=== PATIENT | female | born 1955 | race Caucasian/White ===

== ENCOUNTER → 2017-07-02 | Outpatient (CLI) | payer BC ==
--- NOTE | 2017-07-03 11:11 | MM ---
Reason for exam: screening (asymptomatic). Last mammogram was performed 1 year ago. History: Patient is postmenopausal and has history of other cancer at age 54. Family history of breast cancer in paternal aunt. Took hormonal contraceptives for 2 years beginning at age 30. Physical Findings: A clinical breast exam by your physician is recommended on an annual basis and results should be correlated with mammographic findings. MG 3D Screening Mammo W/Cad Bilateral CC and MLO view(s) were taken. Prior study comparison: July 01, 2016, bilateral MG 3d screening mammo w/cad. July 25, 2015, bilateral MG 3d work up w/cad JOSE. The breast tissue is heterogeneously dense. This may lower the sensitivity of mammography. No suspicious abnormality. No significant changes when compared with prior studies. ASSESSMENT: Negative, BI-RAD 1 RECOMMENDATION: Routine screening mammogram of both breasts in 1 year.
== END | disposition home or self-care (01) ==
LOC: RADMAMWWP 06:54
PROVIDERS: ATTEND Family Medicine
DX: Z12.31 Encounter for screening mammogram for malignant neoplasm of breast (principal)
CPT/HCPCS: 77063; G0202

== ENCOUNTER → 2018-05-05 | Outpatient (CLI) | payer BC ==
--- NOTE | 2018-05-06 15:19 | MM ---
Reason for exam: screening (asymptomatic). Last mammogram was performed 10 months ago. History: Patient is postmenopausal and has history of other cancer at age 54. Family history of breast cancer in paternal aunt. Took hormonal contraceptives for 2 years beginning at age 30. Physical Findings: A clinical breast exam by your physician is recommended on an annual basis and results should be correlated with mammographic findings. MG 3D Screening Mammo W/Cad Bilateral CC and MLO view(s) were taken. Prior study comparison: July 02, 2017, bilateral MG 3d screening mammo w/cad. July 01, 2016, bilateral MG 3d screening mammo w/cad. The breast tissue is heterogeneously dense. This may lower the sensitivity of mammography. There is chronic nodularity bilaterally. There is no dominant lesion. No significant changes when compared with prior studies. ASSESSMENT: Benign, BI-RAD 2 RECOMMENDATION: Routine screening mammogram of both breasts in 1 year.
== END | disposition home or self-care (01) ==
LOC: RADMAMWWP 16:27
PROVIDERS: ATTEND Family Medicine
DX: Z12.31 Encounter for screening mammogram for malignant neoplasm of breast (principal)
CPT/HCPCS: 77063; 77067

== ENCOUNTER → 2018-12-01 | Outpatient (CLI) | payer BC ==
--- NOTE | 2018-12-01 16:19 | US ---
EXAMINATION TYPE: US extremity nonvasc mass JOSE DATE OF EXAM: 12/01/2018 COMPARISON: NONE CLINICAL HISTORY: R22.42 Localized swelling, mass and lump, , R22.41. Pt states feeling multiple, pal pable lumps throughout bilateral anterior thighs x 2 years Bilateral thighs scanned where pt feels multiple palpables. Subtle, echogenic, probable innumerable lipomas where pt feels palpables. Largest measured on each thigh and these appear < 1cm IMPRESSION: 1. Multiple subcutaneous slightly echogenic foci at the palpable regions. Small lipoma is likely with in the differential.
== END | disposition home or self-care (01) ==
LOC: RADUSWWP 10:05
PROVIDERS: ATTEND Family Medicine
DX: R22.43 Localized swelling, mass and lump, lower limb, bilateral (principal)
CPT/HCPCS: 76882

== ENCOUNTER → 2019-05-10 | Outpatient (CLI) | payer BC ==
--- NOTE | 2019-05-12 09:55 | MM ---
Reason for exam: screening (asymptomatic). Last mammogram was performed 1 year ago. History: Patient is postmenopausal and has history of other cancer at age 54. Family history of breast cancer in paternal aunt. Took hormonal contraceptives for 2 years beginning at age 30. Physical Findings: A clinical breast exam by your physician is recommended on an annual basis and results should be correlated with mammographic findings. MG 3D Screening Mammo W/Cad Bilateral CC and MLO view(s) were taken. Prior study comparison: May 05, 2018, bilateral MG 3d screening mammo w/cad. July 02, 2017, bilateral MG 3d screening mammo w/cad. The breast tissue is heterogeneously dense. This may lower the sensitivity of mammography. No significant changes when compared with prior studies. ASSESSMENT: Benign, BI-RAD 2 RECOMMENDATION: Routine screening mammogram of both breasts in 1 year.
== END | disposition home or self-care (01) ==
LOC: RADMAMWWP 15:39
PROVIDERS: ATTEND Family Medicine
DX: Z12.31 Encounter for screening mammogram for malignant neoplasm of breast (principal)
CPT/HCPCS: 77063; 77067

== ENCOUNTER → 2020-05-15 | Outpatient (CLI) | payer BC ==
--- NOTE | 2020-05-15 10:56 | MM ---
Reason for exam: screening (asymptomatic). Last mammogram was performed 1 year ago. History: Patient is postmenopausal and has history of other cancer at age 54. Family history of breast cancer in paternal aunt. Took hormonal contraceptives for 2 years beginning at age 30. Physical Findings: A clinical breast exam by your physician is recommended on an annual basis and results should be correlated with mammographic findings. MG 3D Screening Mammo W/Cad Bilateral CC and MLO view(s) were taken. Prior study comparison: May 10, 2019, bilateral MG 3d screening mammo w/cad. May 05, 2018, bilateral MG 3d screening mammo w/cad. The breast tissue is heterogeneously dense. This may lower the sensitivity of mammography. Benign appearing bilateral calcifications. There is chronic nodularity bilaterally. No significant changes when compared with prior studies. ASSESSMENT: Benign, BI-RAD 2 RECOMMENDATION: Routine screening mammogram of both breasts in 1 year.
== END | disposition home or self-care (01) ==
LOC: RADMAMWWP 07:50
PROVIDERS: ATTEND Family Medicine
DX: Z12.31 Encounter for screening mammogram for malignant neoplasm of breast (principal)
CPT/HCPCS: 77063; 77067

== ENCOUNTER → 2021-04-30 | Outpatient (CLI) | payer MEDICARE, OTHER ==
--- NOTE | 2021-05-01 10:06 | MM ---
Reason for exam: screening (asymptomatic). Last mammogram was performed 11 months ago. History: Patient is postmenopausal and has history of other cancer at age 54. Family history of breast cancer in paternal aunt. Took hormonal contraceptives for 2 years beginning at age 30. Physical Findings: A clinical breast exam by your physician is recommended on an annual basis and results should be correlated with mammographic findings. MG 3D Screening Mammo W/Cad Bilateral CC and MLO view(s) were taken. Prior study comparison: May 15, 2020, bilateral MG 3d screening mammo w/cad. May 10, 2019, bilateral MG 3d screening mammo w/cad. The breast tissue is heterogeneously dense. This may lower the sensitivity of mammography. Finding #1: There is a 14 mm circumscribed oval mass in the middle position of the right breast. New finding and increase in size since May 15, 2020. Finding #2: There are typically benign round calcifications in both breasts. ASSESSMENT: Incomplete: need additional imaging evaluation, BI-RAD 0 RECOMMENDATION: Ultrasound of the right breast. [facility] will attempt to contact patient to return for ultrasound. CHARANJIT
== END | disposition home or self-care (01) ==
LOC: RADMAMWWP 07:34
PROVIDERS: ATTEND Family Medicine
DX: Z12.31 Encounter for screening mammogram for malignant neoplasm of breast (principal)
CPT/HCPCS: 77063; 77067

== ENCOUNTER → 2021-05-03 | Outpatient (CLI) | payer MEDICARE, OTHER ==
--- NOTE | 2021-05-06 08:46 | USB ---
Reason for exam: additional evaluation requested from abnormal screening. History: Patient is postmenopausal and has history of other cancer at age 54. Family history of breast cancer in paternal aunt. Took hormonal contraceptives for 2 years beginning at age 30. Physical Findings: Nurse did not find any significant physical abnormalities on exam. US Breast Workup Limited RT Right limited breast ultrasound including focal area of concern, retroareolar and axilla demonstrates a 1.1 x 0.6 x 0.7cm cystic lesion at 1 o'clock and no finding at 9 o'clock BB. These results were verbally communicated with the patient and result sheet given to the patient on 05/03/21. ASSESSMENT: Probably benign, BI-RAD 3 RECOMMENDATION: Ultrasound of the right breast in 6 months.
== END | disposition home or self-care (01) ==
LOC: RADUSWWP 14:56
PROVIDERS: ATTEND Family Medicine
DX: R92.8 Other abnormal and inconclusive findings on diagnostic imaging of breast (principal)

== ENCOUNTER → 2021-11-04 | Outpatient (CLI) | payer MEDICARE, OTHER ==
--- NOTE | 2021-11-06 12:24 | USB ---
Reason for exam: follow-up at short interval from prior study. History: Patient is postmenopausal and has history of other cancer at age 54. Family history of breast cancer in paternal aunt. Took hormonal contraceptives for 2 years beginning at age 30. Physical Findings: A clinical breast exam by your physician is recommended on an annual basis and results should be correlated with mammographic findings. US Breast Limited RT Technologist: Amada Stockton Right limited breast ultrasound including focal area of concern, retroareolar and axilla demonstrates a 0.9 x 0.6 x 0.6cm cystic lesion at 1 o'clock, 6cm from nipple versus 1.1 x 0.7 x 0.6cm previously, likely corresponds to the mammographic mass. 6 month follow up mammogram. Scanned 12-2 o'clock. ASSESSMENT: Probably benign, BI-RAD 3 RECOMMENDATION: Follow-up diagnostic mammogram of both breasts in 6 months.
== END | disposition home or self-care (01) ==
LOC: RADUSWWP 08:53
PROVIDERS: ATTEND Family Medicine
DX: R92.8 Other abnormal and inconclusive findings on diagnostic imaging of breast (principal)

== ENCOUNTER → 2022-05-01 | Outpatient (CLI) | payer MEDICARE, OTHER ==
--- NOTE | 2022-05-01 13:21 | MM ---
Reason for Exam: Additional evaluation requested from prior study. Last screening mammogram was performed 12 month(s) ago. Patient History: Menarche at age 12. First Full-Term at age 28. Hysterectomy at age 40. Postmenopausal. Patient has history of breast feeding. Hormonal Contraceptives, starting at age 30 for 2 years. Paternal aunt had breast cancer, age 60. Risk Values: Radha 5 year model risk: 1.9%. NCI Lifetime model risk: 6.4%. Prior Study Comparison: 05/03/1994 Screening Mammogram, Unknown. 07/01/2016 Bilateral Screening Mammogram, [facility]. 05/10/2019 Bilateral Screening Mammogram, [facility]. 04/30/2021 Bilateral Screening Mammogram, [facility]. Tissue Density: The breast tissue is heterogeneously dense. This may lower the sensitivity of mammography. Findings: Analyzed By CAD. A few small scattered benign-appearing round calcifications throughout bilateral breasts are redemonstrated. Multiple small circumscribed masses bilaterally are again seen. Left-sided masses are stable or smaller in size. Benign-appearing bilateral axillary lymph nodes are redemonstrated. Some of the masses in the upper outer aspect right breast appear larger in size. Overall Assessment: Incomplete: need additional imaging evaluation, BI-RAD 0 Management: Diagnostic Breast Ultrasound of the right breast. Targeted ultrasound right breast upper-outer quadrant. Electronically signed and approved by: Timothy Lynn M.D.
--- NOTE | 2022-05-01 13:52 | USB ---
Reason for Exam: Additional evaluation requested from abnormal screening. Patient History: Menarche at age 12. First Full-Term at age 28. Hysterectomy at age 40. Postmenopausal. Patient has history of breast feeding. Hormonal Contraceptives, starting at age 30 for 2 years. Paternal aunt had breast cancer, age 60. Risk Values: Radha 5 year model risk: 1.9%. NCI Lifetime model risk: 6.4%. Technique: Method: Targeted. Prior Study Comparison: 05/10/2019 Bilateral Screening Mammogram, [facility]. 05/15/2020 Bilateral Screening Mammogram, [facility]. 04/30/2021 Bilateral Screening Mammogram, [facility]. Findings: Targeted ultrasound shows a 6 x 4 x 6 mm oval fairly anechoic lesion without posterior features that appears avascular favoring debris filled cyst but too small to definitively characterize at 10:00 position 4 cm distance from nipple. There is a 7 x 4 x 5 mm semilunar lobulated anechoic avascular lesion too small to definitively characterize but favor debris filled cyst At 9:00 position 3 cm distance from nipple. Similar lesion noted at 9:00 position. Overall Assessment: Probably benign, BI-RAD 3 Management: Diagnostic Breast Ultrasound of the right breast in 6 months. Diagnostic Mammogram of the right breast in 6 months. No convincing evidence for malignancy. Precautionary targeted diagnostic right breast ultrasound and mammogram in 6 months time is advised. Electronically signed and approved by: Timothy Lynn M.D.
== END | disposition home or self-care (01) ==
LOC: RADMAMWWP 12:49
PROVIDERS: ATTEND Family Medicine
DX: Z12.39 Encounter for other screening for malignant neoplasm of breast (principal); R92.8 Other abnormal and inconclusive findings on diagnostic imaging of breast
CPT/HCPCS: 77066; 76642; G0279; 77062

== ENCOUNTER → 2022-10-30 | Outpatient (CLI) | payer MEDICARE, OTHER ==
--- NOTE | 2022-10-30 10:13 | MM ---
Reason for Exam: Follow-up at short interval from prior study. Last screening mammogram was performed 6 month(s) ago. Patient History: Menarche at age 12. First Full-Term at age 28. Hysterectomy at age 40. Postmenopausal. Patient has history of breast feeding. Hormonal Contraceptives, starting at age 30 for 2 years. Paternal aunt had breast cancer, age 60. Risk Values: Radha 5 year model risk: 1.9%. NCI Lifetime model risk: 6.4%. Prior Study Comparison: 07/01/2016 Bilateral Screening Mammogram, [facility]. 07/02/2017 Bilateral Screening Mammogram, [facility]. 05/05/2018 Bilateral Screening Mammogram, [facility]. 05/10/2019 Bilateral Screening Mammogram, [facility]. 05/15/2020 Bilateral Screening Mammogram, [facility]. 04/30/2021 Bilateral Screening Mammogram, [facility]. 05/01/2022 Bilateral MG 3D diag mammo w/cad JOSE, [facility]. Tissue Density: Right: The breast tissue is heterogeneously dense. This may lower the sensitivity of mammography. Findings: Analyzed By CAD. Scattered cysts as seen within the right breast as seen on same day ultrasound. No suspicious masses, calcifications or distortions. Overall Assessment: Benign, BI-RAD 2 Management: Diagnostic Breast Ultrasound of the right breast. Screening Mammogram of the left breast. A clinical breast exam by your physician is recommended on an annual basis and results should be correlated with mammographic findings. This exam should not preclude additional follow-up of suspicious palpable abnormalities. Results were given to the patient verbally at the time of exam. Electronically signed and approved by: Vega Black DO
--- NOTE | 2022-10-30 10:17 | USB ---
Reason for Exam: Follow-up at short interval from prior study. Patient History: Menarche at age 12. First Full-Term at age 28. Hysterectomy at age 40. Postmenopausal. Patient has history of breast feeding. Hormonal Contraceptives, starting at age 30 for 2 years. Paternal aunt had breast cancer, age 60. Risk Values: Radha 5 year model risk: 1.9%. NCI Lifetime model risk: 6.4%. Technique: Method: Targeted. Prior Study Comparison: 05/15/2020 Bilateral Screening Mammogram, [facility]. 04/30/2021 Bilateral Screening Mammogram, [facility]. 05/01/2022 Bilateral MG 3D diag mammo w/cad JOSE, [facility]. Findings: The upper outer quadrant of the right breast, the axilla of the right breast and the retroareolar of the right breast were scanned. A complete US of all four quadrants of the breast, axilla and retro-areolar region were reviewed. No solid or cystic masses are identified. Redemonstration of multiple cystic lesions some of which are complicated with thin septations. Examples: 9:00 3 cm from nipple 7 x 3 x 5 mm 9:00 3 cm from nipple 7 x 4 x 8 mm 10:00 6 cm from nipple 4 mm 10:00 4 cm from nipple measuring 7 x 3 mm. 11:00 4 submitted some nipple 3 mm. 12:00 4 submitted images from nipple 2 mm. Overall Assessment: Benign, BI-RAD 2 Management: Screening Mammogram of both breasts in 1 year. A clinical breast exam by your physician is recommended on an annual basis and results should be correlated with mammographic findings. This exam should not preclude additional follow-up of suspicious palpable abnormalities. Results were given to the patient verbally at the time of exam. Electronically signed and approved by: Vega Black DO
== END | disposition home or self-care (01) ==
LOC: RADMAMWWP 08:44
PROVIDERS: ATTEND Family Medicine
DX: R92.8 Other abnormal and inconclusive findings on diagnostic imaging of breast (principal); Z80.3 Family history of malignant neoplasm of breast; Z78.0 Asymptomatic menopausal state
CPT/HCPCS: 77065; 76642; G0279; 77061

== ENCOUNTER → 2024-05-20 | Outpatient (CLI) | payer MEDICARE, OTHER ==
--- NOTE | 2024-05-23 14:17 | MM ---
Reason for Exam: Screening (asymptomatic). Last mammogram was performed 1 year(s) and 1 month(s) ago. Patient History: Menarche at age 12. First Full-Term at age 28. Hysterectomy at age 40. Postmenopausal. Patient has history of breast feeding. Hormonal Contraceptives, starting at age 30 for 2 years. Paternal aunt had breast cancer, age 60. Risk Values: Radha 5 year model risk: 1.9%. NCI Lifetime model risk: 5.9%. Prior Study Comparison: 07/02/2017 Bilateral Screening Mammogram, [facility]. 05/05/2018 Bilateral Screening Mammogram, [facility]. 05/10/2019 Bilateral Screening Mammogram, [facility]. 05/15/2020 Bilateral Screening Mammogram, [facility]. 04/30/2021 Bilateral Screening Mammogram, [facility]. 05/01/2022 Bilateral MG 3D diag mammo w/cad JOSE, [facility]. 10/30/2022 Right MG 3D diag mammo w/cad RT, [facility]. 05/08/2023 Bilateral MG 3D screening mammo w/cad, [facility]. Tissue Density: The breasts are heterogeneously dense, which may obscure small masses. Findings: Analyzed By CAD. There is no suspicious group of microcalcifications or new suspicious mass in either breast. Overall Assessment: Benign, BI-RAD 2 Management: Screening Mammogram of both breasts in 1 year. . Patient should continue monthly self-breast exams. A clinical breast exam by your physician is recommended on an annual basis. This exam should not preclude additional follow-up of suspicious palpable abnormalities. Note on Radha scores and lifetime risk: 1. A Radha score greater than 3% is considered moderate risk. If this is the case, consider specialist referral to assess eligibility for a risk reducing agent. 2. If overall lifetime risk for the development of breast cancer is 20% or higher, the patient may qualify for future screening with alternating mammogram and breast MRI. [facility], , 05/23/2024 2:14 PM. Electronically signed and approved by: Gavin Field M.D. Radiologis
== END | disposition home or self-care (01) ==
LOC: RADMAMWWP 13:11
PROVIDERS: ATTEND Family Medicine
DX: Z12.31 Encounter for screening mammogram for malignant neoplasm of breast
CPT/HCPCS: 77063; 77067